=== PATIENT | female | born 1985 | race Caucasian/White ===

== ENCOUNTER 2017-06-29 15:37 | Emergency (ER) | payer MEDICAID, OTHER ==
[~2017-06-29] VITALS: Ht 160 cm; Wt 60.0 kg
[2017-06-29] MEDS ORDERED: KEPP500 PO (15:50)
[2017-06-29] MEDS ORDERED: LEVETIRACETAM 500MG TABLET PO ONE (17:30)
[2017-06-29 17:45] LABS: BASOPHILS % 0.8 % (0.0-2.0); CHLORIDE 100 mEq/L (98-107); EOSINOPHILS % 5.7 % (0.0-5.0); HEMATOCRIT. 33.7 % (36.0-48.0); HEMOGLOBIN. 10.6 g/dL (12.0-16.0); LYMPHOCYTES % 30.4 % (20.0-50.0); MEAN CORPUSCULAR HEMOGLOBIN 22.5 pg (28.0-32.0); MEAN CORPUSCULAR VOLUME 71.6 fL (81.0-99.0); MONOCYTES % 9.3 % (2.0-8.0); NEUTROPHILS % 53.8 % (40.0-76.0); PLATELET 440 x1000/uL (130-400); RED BLOOD CELL COUNT 4.71 mill/uL (4.2-5.4); RED CELL DISTRIBUTION WIDTH 20.7 % (11.6-14.6)
[2017-06-29 18:31] LABS: CLARITY URINE CLOUDY (CLEAR); COLOR URINE YELLOW (YELLOW); KETONES URINE NEGATIVE (NEGATIVE); LEUKOCYTE ESTERASE URINE 3+ (NEGATIVE); NITRITE URINE NEGATIVE (NEGATIVE); OCCULT BLOOD URINE TRACE (NEGATIVE); PROTEIN URINE NEGATIVE (NEGATIVE); SPECIFIC GRAVITY URINE 1.012 (1.005-1.030); UROBILINOGEN URINE 0.2 E.U./dL (0.2-1.0)
[2017-06-29 18:43] LABS: *AMPHETAMINES SCREEN URINE NEGATIVE (NEGATIVE); *BARBITURATES SCREEN URINE NEGATIVE (NEGATIVE); *BENZODIAZEPINES SCREEN URINE NEGATIVE (NEGATIVE); *COCAINE SCREEN URINE NEGATIVE (NEGATIVE); METHADONE URINE SCREEN NEGATIVE (NEGATIVE)
[2017-06-29 18:44] LABS: CANNABINOID URINE SCREEN NEGATIVE (NEGATIVE); OPIATES URINE SCREEN NEGATIVE (NEGATIVE); PHENCYCLIDINE URINE SCREEN NEGATIVE (NEGATIVE)
[2017-06-29] MEDS ORDERED: NITROFURANTOIN 100MG M/M CAPSULE PO ONE (19:57)
[2017-06-29 20:03] LABS: ETHANOL BLOOD < 10 mg/dL
[2017-06-30] MEDS ORDERED: BACITRACIN ZINC OINT UDPKT TOP ONE (10:15)
[2017-07-01] MEDS ORDERED: NITROFURANTOIN 100MG M/M CAPSULE PO ONE (11:15)
[2017-07-01] MEDS ORDERED: LEVETIRACETAM 500MG TABLET PO ONE (11:15)
[2017-07-01] MEDS ORDERED: BACITRACIN ZINC OINT UDPKT TOP ONE (22:15)
[2017-07-02 05:30] VITALS: BP 98/54
== END 2017-07-02 09:27 | disposition home or self-care (01) ==
LOC: ER 15:59
DX: R53.1 Weakness (principal); R45.851 Suicidal ideations; R56.9 Unspecified convulsions
CPT/HCPCS: 36415; 80053; 80305; 80307; 80329; 81003; 81025; 82542; 85025; 87086; 99284; G0482